=== PATIENT | female | born 1980 | race Caucasian/White ===

== ENCOUNTER 2022-04-27 22:35 | Emergency (ER) | payer SELFPAY ==
[~2022-04-27] VITALS: Ht 175.3 cm; Wt 113.6 kg
[~2022-04-27 22:35] MED LIST: ASPIRIN 32325 MG/TA1 PO; BCP; NORCO 325 MG-7.1 TAB PO; PHENERGAN W/CO120 ML PO; ROXICODONE 55 MG/TAB PO
[2022-04-27 23:31] LABS: BASO % 0.3 % (0.0-2.0); GRAN # 1.7 K/mm3 (1.4-6.5); HEMATOCRIT 40.3 % (37.0-47.0); HEMOGLOBIN 13.5 g/dl (12.5-16.0); LYMPH # 1.6 K/mm3 (1.2-3.4); LYMPH % 43.6 % (20.0-51.0); MEAN CELL VOLUME 86 fl (80.0-100.0); MEAN CORPUSCULAR HEMOGLOBIN 29 pg (27-31); MEAN CORPUSCULAR HGB CONC 34 g/dl (33.0-37.0); MEAN PLATELET VOLUME 9.5 fl (7.4-10.4); MONO # 0.4 K/mm3 (0.1-0.6); MONO % 9.8 % (1.7-9.3); PLATELET COUNT 237 K/mm3 (130-400); RED BLOOD COUNT 4.67 M/mm3 (4.10-5.30); REDCELL DISTRIBUTION WIDTH-CV 13.1 % (11.5-14.5)
[2022-04-27 23:45] LABS: ALBUMIN 3.4 gm/dL (3.5-5.0); BILIRUBIN,TOTAL 0.5 mg/dL (0.2-1.2); CALCIUM 9.2 mg/dL (8.4-10.2); CREATININE, serum 0.76 mg/dL (0.57-1.11); POTASSIUM 4.1 mmol/L (3.5-4.5); TOTAL PROTEIN 7.8 gm/dL (6.2-8.1)
[2022-04-28 00:57] VITALS: BP 144/86; PULSE 81; TEMP 98.6
== END 2022-04-28 02:30 | disposition home or self-care (01) ==
LOC: COL.ER 22:35
PROVIDERS: Physician Assistant
DX: U07.1 COVID-19 (principal); Z28.310 Unvaccinated for COVID-19
CPT/HCPCS: J7030

== ENCOUNTER → 2024-02-19 | Outpatient (CLI) | payer OTHER | LOC: MC.RAD 08:23 | DX: Z12.31 Encounter for screening mammogram for malignant neoplasm of breast (principal); N63.10 Unspecified lump in the right breast, unspecified quadrant ==